=== PATIENT | male | born 1955 | race Asian ===

== ENCOUNTER 2019-01-17 07:30 | Inpatient (IN) | payer OTHER ==
[~2019-01-17] VITALS: Ht 175.3 cm; Wt 78.7 kg
[2019-02-27] MEDS ORDERED: VITAMIN A PO (09:21)
[2019-02-27] MEDS ORDERED: OMEP-110 PO (09:21)
[2019-02-27] MEDS ORDERED: VITAMIN D3 PO (09:21)
[2019-02-27] MEDS ORDERED: RIVA20TA PO (09:21)
[2019-02-27] MEDS ORDERED: METO-95 PO (09:21)
[2019-02-27] MEDS ORDERED: CETI10TA24 PO (09:21)
[2019-02-27] MEDS ORDERED: AMLO10TA8 PO (09:21)
[2019-02-27 09:52] LABS: BASOPHILS # (AUTO) 0.03 x10^3/uL (0-0.1); BASOPHILS % (AUTO) 0 % (0-1); EOSINOPHILS # (AUTO) 0.14 x10^3/uL (0-0.4); EOSINOPHILS % (AUTO) 2 % (1-7); LYMPHOCYTES # (AUTO) 1.55 x10^3/uL (1-3.4); LYMPHOCYTES % (AUTO) 24 % (22-44); MD NO; MEAN CORPUSCULAR HEMOGLOBIN 29.8 pg (27.5-34.5); MEAN CORPUSCULAR HGB CONC 33.9 g/dL (33.2-36.2); MEAN PLATELET VOLUME 7.8 fL (7.4-10.4); MONOCYTES % (AUTO) 9 % (2-9); NEUTROPHILS # (AUTO) 4.08 x10^3/uL (1.8-6.8); NEUTROPHILS % (AUTO) 64 % (42-75); PLATELET COUNT 247 x10^3/uL (130-400); RED BLOOD COUNT 5.16 x10^6/uL (4.38-5.82); RED CELL DISTRIBUTION WIDTH 15.6 % (9.4-14.8)
[2019-02-27 10:05] LABS: ALBUMIN 3.7 g/dL (3.4-5.0); ANION GAP 8 mmol/L (5-15); CHLORIDE 105 mmol/L (98-107)
[2019-02-27 10:08] LABS: ALANINE AMINOTRANSFERASE 45 U/L (12-78); ALKALINE PHOSPHATASE 109 U/L (45-117); BILIRUBIN,TOTAL 0.6 mg/dL (0.2-1.0); CREATININE 1.04 mg/dL (0.7-1.3); TOTAL PROTEIN 8.1 g/dL (6.4-8.2)
[2019-02-28 09:40] VITALS: BP 145/102
[2019-02-28] MEDS ORDERED: LACTATED RINGERS 1,000 ML IV SCH (10:00)
[2019-02-28] MEDS ORDERED: HEPARIN 5,000 UNITS/ML, 1ML ONE (10:13)
[2019-02-28] MEDS ORDERED: THROMBIN 20,000 UNIT VIAL TP ONE (10:13)
[2019-02-28] MEDS ORDERED: BACITRACIN 50,000 UNIT ONE (10:13)
[2019-02-28] MEDS ORDERED: PROTAMINE SULFATE 10 MG/ML, 5ML ONE (10:13)
[2019-02-28] MEDS ORDERED: MIDAZOLAM 10MG/2 ML ONE (12:09)
[2019-02-28] MEDS ORDERED: FENTANYL PF 250 MCG/5ML ONE (12:09)
[2019-02-28] MEDS ORDERED: NEOSTIGMINE 1 MG/ML, 10ML ONE (12:14)
[2019-02-28] MEDS ORDERED: ONDANSETRON 2MG/ML, 2ML ONE (12:14)
[2019-02-28] MEDS ORDERED: ROCURONIUM 10MG/ML,5ML ONE (12:14)
[2019-02-28] MEDS ORDERED: PROPOFOL 10 MG/ML, 20ML ONE (12:14)
[2019-02-28] MEDS ORDERED: GLYCOPYRROLATE 0.2MG/1ML, 5ML ONE (12:14)
[2019-02-28] MEDS ORDERED: DEXAMETHASONE 4 MG/ML, 1ML ONE (12:14)
[2019-02-28] MEDS ORDERED: BUPIVACAINE/PF-EPI 0.5% 1:200K ONE (13:01)
[2019-02-28] MEDS ORDERED: HEPARIN 1,000 UNITS/ML, 30ML ONE (13:13)
[2019-02-28] MEDS ORDERED: HEPARIN 1,000 UNITS/ML, 10ML ONE (13:13)
[2019-02-28] MEDS ORDERED: FENTANYL PF 100 MCG/2ML ONE (14:46)
[2019-02-28] MEDS ORDERED: hydrALAzine 20 MG/ML, 1ML ONE (15:00)
[2019-02-28] MEDS ORDERED: hydrALAzine 20 MG/ML, 1ML IV PRN ×2 (15:00→17:30)
[2019-02-28] MEDS ORDERED: FENTANYL PF 100 MCG/2ML IVPush ONE (15:00)
[2019-02-28] MEDS ORDERED: METOCLOPRAMIDE 5 MG/ML, 2ML ONE (15:00)
[2019-02-28] MEDS ORDERED: METOPROLOL 1 MG/ML, 5ML IVPush ONE (15:00)
[2019-02-28] MEDS ORDERED: ACETAMINOPHEN 650 MG SUPP PR PRN (15:00)
[2019-02-28] MEDS ORDERED: METOPROLOL 1 MG/ML, 5ML ONE (15:03)
[2019-02-28] MEDS: FENTANYL PF 100 MCG/2ML IVPush PRN (15:21)
[2019-02-28] MEDS ORDERED: HYDROmorphone 2 MG/ML, 1ML ONE (15:25)
[2019-02-28] MEDS: D5%-0.45% NACL 1,000 ML IV SCH (15:34)
[2019-02-28] MEDS: CEFAZOLIN PMX 2GM/50ML 50 ML IVPB SCH (15:34)
[2019-02-28] MEDS: HYDROmorphone 2 MG/ML, 1ML IVPush PRN (15:35)
[2019-02-28] MEDS: CETIRIZINE 10 MG TABLET PO SCH (16:00)
[2019-02-28] MEDS ORDERED: ENOXAPARIN 40 MG/0.4 ML SQ SCH (16:00)
[2019-02-28] MEDS ORDERED: METOPROLOL 1 MG/ML, 5ML IVPush PRN (17:30)
[2019-02-28] MEDS: OXYcodone IR 5MG TABLET PO PRN ×2 (18:05→22:06)
[2019-03-01] MEDS: D5%-0.45% NACL 1,000 ML IV SCH ×3 (00:07→15:44)
[2019-03-01] MEDS: CEFAZOLIN PMX 2GM/50ML 50 ML IVPB SCH ×3 (00:08→15:44)
[2019-03-01] MEDS: OXYcodone IR 5MG TABLET PO PRN ×5 (01:37→23:28)
[2019-03-01 04:00] VITALS: BP 128/62
[2019-03-01] MEDS: AMLODIPINE 10 MG TAB PO SCH (07:10)
[2019-03-01] MEDS: CHOLECALCIFEROL 400 UNITS TABLET PO SCH (07:10)
[2019-03-01] MEDS: FENTANYL PF 100 MCG/2ML IVPush PRN (07:10)
[2019-03-01] MEDS: CETIRIZINE 10 MG TABLET PO SCH (07:11)
[2019-03-01] MEDS: OMEPRAZOLE 20 MG CAPSULE.DR PO SCH (07:11)
[2019-03-01] MEDS: HYDROmorphone 2 MG/ML, 1ML IVPush PRN (09:39)
[2019-03-01] MEDS: ASPIRIN 81 MG TABLET EC PO SCH (13:01)
[2019-03-01] MEDS: VITAMIN A 10,000 UNIT CAPSULE PO SCH (13:01)
[2019-03-01] MEDS: HEPARIN 5,000 UNITS/ML, 1ML SQ SCH ×2 (13:02→20:37)
[2019-03-01] MEDS: ACETAMINOPHEN 325 MG TABLET PO PRN (21:47)
[2019-03-01 22:01] LABS: MICROSCOPIC AUTO
[2019-03-01 22:02] LABS: CULTURE INDICATED? NO
[2019-03-01 22:59] LABS: ANION GAP 6 mmol/L (5-15); CALCIUM 8.5 mg/dL (8.5-10.1); CHLORIDE 102 mmol/L (98-107); CREATININE 1.14 mg/dL (0.7-1.3)
[2019-03-01 23:03] LABS: BASOPHILS # (AUTO) 0.04 x10^3/uL (0-0.1); BASOPHILS % (AUTO) 0 % (0-1); EOSINOPHILS # (AUTO) 0.03 x10^3/uL (0-0.4); EOSINOPHILS % (AUTO) 0 % (1-7); LYMPHOCYTES # (AUTO) 1.56 x10^3/uL (1-3.4); LYMPHOCYTES % (AUTO) 18 % (22-44); MD NO; MEAN CORPUSCULAR HEMOGLOBIN 29.7 pg (27.5-34.5); MEAN CORPUSCULAR VOLUME 87.6 fL (81-97); MEAN PLATELET VOLUME 7.7 fL (7.4-10.4); MONOCYTES # (AUTO) 1.07 x10^3/uL (0.2-0.8); MONOCYTES % (AUTO) 12 % (2-9); NEUTROPHILS # (AUTO) 6.05 x10^3/uL (1.8-6.8); NEUTROPHILS % (AUTO) 69 % (42-75); PLATELET COUNT 199 x10^3/uL (130-400); RED BLOOD COUNT 4.51 x10^6/uL (4.38-5.82); RED CELL DISTRIBUTION WIDTH 14.8 % (9.4-14.8)
[2019-03-02] MEDS ORDERED: CEFAZOLIN 2,000 MG in SODIUM CHLORIDE 0.9% 50 ML IV SCH
[2019-03-02] MEDS: CEFAZOLIN PMX 2GM/50ML 50 ML IVPB SCH ×3 (00:41→16:56)
[2019-03-02 04:00] VITALS: BP 143/80
[2019-03-02] MEDS: ACETAMINOPHEN 325 MG TABLET PO PRN ×3 (04:55→21:59)
[2019-03-02] MEDS: OXYcodone IR 5MG TABLET PO PRN ×4 (04:55→20:37)
[2019-03-02] MEDS: ASPIRIN 81 MG TABLET EC PO SCH (06:06)
[2019-03-02] MEDS: HEPARIN 5,000 UNITS/ML, 1ML SQ SCH ×2 (08:30→20:17)
[2019-03-02] MEDS: VITAMIN A 10,000 UNIT CAPSULE PO SCH (09:14)
[2019-03-02] MEDS: OMEPRAZOLE 20 MG CAPSULE.DR PO SCH (09:15)
[2019-03-02] MEDS: CHOLECALCIFEROL 400 UNITS TABLET PO SCH (09:15)
[2019-03-02] MEDS: CETIRIZINE 10 MG TABLET PO SCH (09:15)
[2019-03-02] MEDS: AMLODIPINE 10 MG TAB PO SCH (09:16)
[2019-03-02 19:35] VITALS: BP 154/85
[2019-03-03] MEDS: OXYcodone IR 5MG TABLET PO PRN ×3 (00:26→10:39)
[2019-03-03] MEDS: CEFAZOLIN PMX 2GM/50ML 50 ML IVPB SCH ×2 (00:27→08:46)
[2019-03-03 02:20] VITALS: BP 134/76
[2019-03-03] MEDS: ASPIRIN 81 MG TABLET EC PO SCH (05:50)
[2019-03-03] MEDS: ACETAMINOPHEN 325 MG TABLET PO PRN ×2 (05:55→14:02)
[2019-03-03 08:15] VITALS: BP 147/90
[2019-03-03] MEDS: VITAMIN A 10,000 UNIT CAPSULE PO SCH (08:45)
[2019-03-03] MEDS: HEPARIN 5,000 UNITS/ML, 1ML SQ SCH (08:45)
[2019-03-03] MEDS: CHOLECALCIFEROL 400 UNITS TABLET PO SCH (08:45)
[2019-03-03] MEDS: OMEPRAZOLE 20 MG CAPSULE.DR PO SCH (08:45)
[2019-03-03] MEDS: AMLODIPINE 10 MG TAB PO SCH (08:45)
[2019-03-03] MEDS: CETIRIZINE 10 MG TABLET PO SCH (09:00)
[2019-03-03 09:50] VITALS: BP 143/74
[2019-03-03] MEDS ORDERED: ACET325T14 PO (09:53)
[2019-03-03] MEDS ORDERED: ASPI81TA45 PO (09:53)
[2019-03-03 12:35] VITALS: BP 142/85
== END 2019-03-03 15:55 | disposition home or self-care (01) | DRG 220 ==
LOC: ORIP 02-28 08:51 → EDSTATUS 02-28 11:30 → CCU 02-28 14:45 → 4NOR 03-02 19:30
PROVIDERS: ADMIT Surgery; ATTEND Surgery
PROC: 02VW3DZ Restriction of Thoracic Aorta, Descending with Intraluminal Device, Percutaneous Approach (ICD-10-PCS; 2019-02-28)
PROC: B246ZZ4 Ultrasonography of Right and Left Heart, Transesophageal (ICD-10-PCS; 2019-02-28)
PROC: 03HY32Z Insertion of Monitoring Device into Upper Artery, Percutaneous Approach (ICD-10-PCS; principal; 2019-02-28 11:30)
DX: I71.01 Dissection of thoracic aorta (principal); R71.0 Precipitous drop in hematocrit; F41.9 Anxiety disorder, unspecified; E78.5 Hyperlipidemia, unspecified; M79.81 Nontraumatic hematoma of soft tissue; I48.91 Unspecified atrial fibrillation; I10 Essential (primary) hypertension; Z80.0 Family history of malignant neoplasm of digestive organs; Z83.3 Family history of diabetes mellitus; Z82.49 Family history of ischemic heart disease and other diseases of the circulatory system
CPT/HCPCS: 36415; 71046; 75957; 80048; 80053; 81001; 85014; 85018; 85025; 86850; 86900; 87040; 87070; 87081; 87205; 93005; 93315; 93325; C1760; G0378; J0690; J1100; J1170; J1644; J2250; J2405; J2704; J2710; J2720; J3010; C1751; C1753; C1768; C1769; C1894; J0360; J7120